=== PATIENT | male | born 1965 ===

== ENCOUNTER 2017-09-29 10:13 | Outpatient (CLI) | payer OTHER | END 2017-09-29 10:14 | disposition home or self-care (01) | LOC: BICCT 10:13 → EDSEX 10:13 → BICCT 10:14 | PROVIDERS: ATTEND Otolaryngology Plastic Surgery within the Head & Neck | DX: H90.11 Conductive hearing loss, unilateral, right ear, with unrestricted hearing on the contralateral side (principal); Z98.890 Other specified postprocedural states | CPT/HCPCS: 70480 ==